=== PATIENT | female | born 1970 | race Caucasian/White ===

== ENCOUNTER 2021-01-25 04:58 | Emergency (ER) | payer OTHER ==
[~2021-01-25 04:58] MED LIST: LODINE400 MG PO
[2021-01-25 05:27] LABS: BASOPHIL 0.7 % (0-2); EOSINOPHIL 1.4 % (0-5); HCT 45.5 % (37.0-47.0); HGB 16.7 g/dl (12.5-16.0); LYMPHOCYTE 48.6 % (15-48); MCH 32.5 pg (25.0-31.0); MCHC 36.7 g/dL (32.0-36.0); MCV 88.5 fL (78.0-100.0); MONOCYTE 8.5 % (0-12); MPV 9.9 fL (6.0-9.5); NEUTROPHIL 39.9 % (41-80); NRBC 0; PLT 385 K/uL (150-400); RBC 5.14 M/uL (4.20-5.40); WBC 14.7 K/uL (4.0-10.5)
[2021-01-25 05:41] LABS: BUN/CREAT RATIO (CALC) 23.7 RATIO; CREATININE 0.76 mg/dL (0.51-0.95); POTASSIUM 3.7 mmol/L (3.5-5.1)
== END 2021-01-25 06:59 | disposition home or self-care (01) ==
LOC: FER 04:58
PROVIDERS: Emergency Medicine Emergency Medical Services
DX: R51.9 Headache, unspecified (principal); F17.210 Nicotine dependence, cigarettes, uncomplicated; Z88.0 Allergy status to penicillin; Z88.1 Allergy status to other antibiotic agents; Z88.5 Allergy status to narcotic agent
CPT/HCPCS: 36415; 70450; 80048; 85025; J0780; J1200; J1885; J7030